=== PATIENT | male | born 1995 ===

== ENCOUNTER → 2018-07-07 | Outpatient (CLI) | payer OTHER ==
[~2018-07-07] VITALS: Ht 172.7 cm; Wt 96.2 kg
[~2018-07-07] MED LIST: DYNACIN100 MG PO; MOBIC15 MG PO; PHENTERMINE H37.5 M1 PO; TOPAMAX 25 MG T25 M1 PO
[2018-07-07 08:24] VITALS: BP 124/78
--- NOTE | 2018-07-07 08:48 | NUR ---
Pain Clinic Assessment: 1. History of Osteoarthritis: History of Rheumatoid Arthritis: 2. Height: 5 ft. 8 in. 172.7 cm. Weight: 212.0 lb. oz. 96.163 kg. Patient's BMI: 32.2 3. Vital Signs: BP: 124/78 Pulse: 70 Resp: 16 Temp: 02 Sat: 100 ECG Mon: 4. Pain Intensity: 7 5. Fall Risk: Dizziness: N Needs help standing or walking: N Fallen in the last 3 months: N Fall risk comments: 6. Patient on Blood Thinner: None 7. History of Hypertension: N 8. Opioid Therapy greater than 6 weeks: N Opiate Contract Signed: 9. Risk Assessment Tool Provided: 10. Functional Assessment Tool: 11. Recreational Drug Use: Never Drug Type: Tobacco Use: Never Smoker Tobacco Type: Amount or Packs/day: How Many Years: Alcohol Use: No Frequency: Quant:
--- NOTE | 2018-07-08 08:10 | HPC ---
[facility] [address] [place] [address] PAIN MANAGEMENT CONSULTATION Name: NICOLA WOO Room #: REG [facility]..#: [id number] Admission: 07/07/18 ������������������ Attend Phys: Jeff Munroe DO Discharge: ������������������ Date of : 97 Report #: [id number] THIS REPORT FOR: //name// CC: KOBY Ogden FAM physician/PCP Jeff Munroe DATE OF SERVICE: 07/07/2018 REFERRING PHYSICIAN: Koby Ogden CHIEF COMPLAINT: Low back pain, bilateral posterolateral thigh pain. HISTORY OF PRESENT ILLNESS: As you know, the patient is a 22-year-old male referred to our clinic with a longstanding history of low back pain and bilateral posterolateral thigh pain. The patient states this has been present since a weight lifting injury in high school. He states that as of 06/09/2018, he had an acute exacerbation of symptoms while participating in intramural sports at his college. He has shown no improvement with conservative management such as Medrol Dosepak. He sought chiropractic manipulation and physical therapy, none of which have provided good benefit. Due to lack of improvement with conservative treatment options, the patient was referred to our clinic to discuss more aggressive treatment options such as epidural injections. The patient indicates his pain is continuous, describes the pain as sharp, places current pain score at 7/10, daily average at 7/10, worst pain has been is 10/10. The patient states that any type of physical activity exacerbates symptoms, nothing appears to improve pain. He has been referred to our service after undergoing MRI imaging, which shows a broad-based disk protrusion abutting the S1 nerve roots at the L5-S1 level with mild tapering of the central canal. PAST MEDICAL HISTORY: None. PAST SURGICAL HISTORY: None. SOCIAL HISTORY: The patient denies tobacco, alcohol, IV or illicit drug use. 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 He is not receiving workmen's compensation nor is he trying to obtain disability benefits. He is not in litigation in regards to pain. He is accompanied by his mother, present in room today providing some of the history. REVIEW OF SYSTEMS: Positive for wearing corrective eyewear, low back pain, numbness and tingling sensations. All other review of systems negative per 12-point review of systems other than those listed in history of present illness. [facility] [address] [place] [address] PAIN MANAGEMENT CONSULTATION Name: NICOLA WOO Room #: REG Amena Walsh.#: [id number] Admission: 07/07/18 ������������������ Attend Phys: Jeff Munroe DO Discharge: ������������������ Date of : 97 Report #: [id number] PAIN SCORE: Pain impact score 39/70 indicating moderate interference of daily activities secondary to pain. ALLERGIES: No known drug allergies. CURRENT MEDICATIONS: Minocycline 100 mg b.i.d., topiramate 25 mg p.o. at bedtime, phentermine 37.5 mg once a day, meloxicam 15 mg once a day. IMAGING: MRI lumbar spine obtained on 06/26/2018 shows a broad-based disk protrusion abutting the S1 nerve roots at the L5-S1 level tapering the canal to 9 mm with minimal bilateral foraminal stenosis. There are some degenerative changes noted at the L5-S1 level as well. Remaining MRI is normal. PHYSICAL EXAMINATION: VITAL SIGNS: Blood pressure 124/78, pulse is 70, respiratory rate 16 and unlabored. The patient is 100% on room air. Height 5 feet 8 inches tall, weight 212 pounds, and BMI calculated 32.2. GENERAL: Well-developed, well-nourished, well-hydrated exogenously obese 22-year-old male appearing stated age, placing current pain score 7/10. HEENT: Normocephalic, atraumatic. Pupils equal, round, reactive to light. Extraocular muscles are intact. Sclerae nonicteric without injection. NEUROLOGIC: Cranial nerves 2-12 grossly intact. Speech is fluent. The patient deemed fair historian. LUNGS: Clear, no wheeze, rhonchi or rales. CARDIOVASCULAR: Regular. No appreciable gallop, no rub. ABDOMEN: Soft, mildly obese. Normoactive bowel sounds. EXTREMITIES: Show no clubbing, no cyanosis, no edema. MUSCULOSKELETAL: Lower extremity strength is symmetrical 5/5, muscle bulk and tone is equal and symmetrical in comparing left lower extremity to right. He is intact to light touch from L1 through S2 dermatomes. Seated straight leg raising negative. Supine straight leg raising is equivocal. Deep tendinous reflexes 2+/4 patella and Achilles. Ankle clonus negative. Babinski is negative. Gait is normal. Stance slightly forward flexed lumbar spine. Lumbar provocation testing including extension, rotation, lateral flexion all intensify axial back pain, no radiation of symptoms. ASSESSMENT: 1. Suspected lumbar radiculopathy. 2. Displacement of lumbar intervertebral disk with radicular symptoms. 3. Degeneration of the L5-S1 disk. 4. Minimal bilateral foraminal stenosis at L5-S1. 5. Chronic intractable pain. PLAN: 1. Based on today's physical exam and history the patient has provided, the [address] [address] PAIN MANAGEMENT CONSULTATION Name: NICOLA WOO Room #: REG MAHESH Singh#: [id number] Admission: 07/07/18 ������������������ Attend Phys: Jeff Munroe DO Discharge: ������������������ Date of : 97 Report #: [id number] description the patient uses in regards to pain as well as location of symptoms, likely source of the patient's pain is radicular in origin. The patient has changes only at the L5-S1 level. The rest of the remaining lumbar spine is normal. The patient has trialled conservative treatments with physical therapy for which he indicates pain, stabilized, but did not improve. He has tried chiropractic manipulation without success. He has been given a Medrol Dosepak of late to try to address this acute onset of worsening pain with no real efficacy. He has been referred to our clinic to discuss options for treatment for suspected lumbar radiculopathy secondary to the findings at the L5-S1 level. We discussed the following treatment options today. We discussed reinitiating physical therapy with a concerted effort at core strengthening and stretching. We discussed medication management adding neuropathic pain medications specifically either Neurontin, Lyrica, nortriptyline or amitriptyline. We discussed epidural injection under fluoroscopic guidance as a treatment option and ultimately surgical decompression. After reviewing the risks and benefits of all the proposed treatment options, the patient chose to begin with an epidural injection under fluoroscopic guidance. The patient was advised that third libertarian payer restrictions require loss or authorization be obtained before the patient can undergo the epidural injection. We will begin the authorization process immediately. Once this has been obtained, we will have the patient return to undergo the first in a series of lumbar epidural injections to address suspected lumbar radiculopathy. 2. We made no changes in the patient's medication management at this time. Recommend that he continue current medication management. 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 This would not be advisable. 3. We wish to thank the referring physician, Dr. Ogden for the referral of this patient to our clinic. We will keep you apprised of his response to treatment as we address suspected lumbar radiculopathy. Again, we wish to thank Dr. Ogden for the referral of the patient to our clinic. ��������������������������������������������� <ELECTRONICALLY SIGNED> ���������������������������������������� By: Jeff Munroe DO ��������������������������������������������� 07/08/18 0810 [id number] Jeff Munroe DO /nt
== END ==
LOC: PAIN 07:59
DX: M51.16 Intervertebral disc disorders with radiculopathy, lumbar region (principal); M48.07 Spinal stenosis, lumbosacral region; G89.4 Chronic pain syndrome; Z79.899 Other long term (current) drug therapy

== ENCOUNTER → 2018-07-10 | Outpatient (CLI) | payer OTHER ==
[~2018-07-10] VITALS: Ht 172.7 cm; Wt 98.8 kg
[2018-07-10 07:44] VITALS: BP 134/88
--- NOTE | 2018-07-10 07:44 | NUR ---
Pain Clinic Assessment: 1. History of Osteoarthritis: Not Applicable History of Rheumatoid Arthritis: Not Applicable 2. Height: ft. in. cm. Weight: lb. oz. kg. Patient's BMI: 3. Vital Signs: BP: Pulse: Resp: Temp: 02 Sat: ECG Mon: 4. Pain Intensity: 7 5. Fall Risk: Dizziness: N Needs help standing or walking: N Fallen in the last 3 months: N Fall risk comments: 6. Patient on Blood Thinner: None 7. History of Hypertension: N 8. Opioid Therapy greater than 6 weeks: N Opiate Contract Signed: 9. Risk Assessment Tool Provided: 10. Functional Assessment Tool: 11. Recreational Drug Use: Never Drug Type: Tobacco Use: Never Smoker Tobacco Type: Amount or Packs/day: How Many Years: Alcohol Use: No Frequency: Quant:
--- NOTE | 2018-07-10 07:48 | NUR ---
Pain Clinic Assessment: 1. History of Osteoarthritis: Not Applicable History of Rheumatoid Arthritis: Not Applicable 2. Height: 5 ft. 8 in. 172.7 cm. Weight: 217.8 lb. oz. 98.794 kg. Patient's BMI: 33.1 3. Vital Signs: BP: 134/88 Pulse: 77 Resp: 18 Temp: 02 Sat: 100 ECG Mon: 4. Pain Intensity: 7 5. Fall Risk: Dizziness: N Needs help standing or walking: N Fallen in the last 3 months: N Fall risk comments: 6. Patient on Blood Thinner: None 7. History of Hypertension: N 8. Opioid Therapy greater than 6 weeks: N Opiate Contract Signed: 9. Risk Assessment Tool Provided: 10. Functional Assessment Tool: 11. Recreational Drug Use: Never Drug Type: Tobacco Use: Never Smoker Tobacco Type: Amount or Packs/day: How Many Years: Alcohol Use: No Frequency: Quant:
--- NOTE | 2018-07-14 14:31 | HPC ---
[facility] [place] [address] [place] [address] PAIN MANAGEMENT CONSULTATION Name: NICOLA WOO Room #: REG [facility] M..#: [id number] Admission: 07/10/18 ������������������ Attend Phys: Jeff Munroe DO Discharge: ������������������ Date of : 97 Report #: [id number] THIS REPORT FOR: //name// CC: TIMUR DELGADO DO [facility] physician/PCP Jeff Munroe DATE OF SERVICE: 07/10/2018 CHIEF COMPLAINT: Low back pain, bilateral posterolateral thigh pain. HISTORY OF PRESENT ILLNESS: As you know, the patient is a very pleasant 22-year-old male referred to our clinic for longstanding low back pain, bilateral posterolateral thigh pain. He states pain has been present since weight lifting injury in high school. He states that as of 06/09/2018, his pain exacerbated to a point where he could no longer tolerate symptoms. He was seen in consultation on 07/07/2018, diagnosed with lumbar radiculopathy secondary to the displacement of a lumbar intervertebral disk. He had degeneration of the disk at the L5-S1 level with minimal bilateral foraminal stenosis at the L5-S1 level. He returns today in followup visit having received authorization to undergo the first in a series of lumbar epidural injections under fluoroscopic guidance. Today, he places pain score at 7/10. He states pain is constant and sharp in sensation; exacerbated with activity, improves with medications, heat, cold compresses and rest. He returns today to undergo the first in series of lumbar epidural injections under fluoroscopic guidance. ALLERGIES: No known drug allergies. CURRENT MEDICATIONS: Minocycline 100 mg b.i.d., topiramate 25 mg p.o. at bedtime, phentermine 37.5 mg once a day, meloxicam 15 mg once a day. SOCIAL HISTORY: The patient denies tobacco, alcohol, IV or illicit drug use. 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 He is unaccompanied today. IMAGING: No new imaging available. PHYSICAL EXAMINATION: VITAL SIGNS: Blood pressure 134/88, pulse 77, respiratory rate 18 and unlabored. The patient is 100% on room air. Height 5 feet 8 inches tall, weight 217.8 pounds, BMI calculated at 33.1. GENERAL: Well-developed, well-nourished, well-hydrated exogenously obese 22-year-old male appearing stated age, placing current pain score 7/10. HEENT: Normocephalic, atraumatic. Pupils equal, round, reactive to light. EXTREMITIES: Show no clubbing, no cyanosis, no edema. [address] [address] PAIN MANAGEMENT CONSULTATION Name: NICOLA WOO [id number] Admission: 07/10/18 ������������������ Attend Phys: Jeff Munroe DO Discharge: ������������������ Date of : 97 Report #: [id number] MUSCULOSKELETAL: Lower extremity strength is symmetrical 5/5, muscle bulk and tone equal and symmetrical in comparing left lower extremity to right. He is intact to light touch from L1 through S2 dermatomes. Seated straight leg raising negative. Supine straight leg raising is equivocal. Deep tendon reflexes 2+/4 patella and Achilles. ASSESSMENT: 1. Suspected lumbar radiculopathy. 2. Displacement of lumbar intervertebral disk with radicular symptoms. 3. Degeneration of the L5-S1 disk. 4. Minimal neural foraminal stenosis of the lumbar spine. 5. Chronic intractable pain. PLAN: 1. The patient has returned today in followup visit having received authorization to undergo first in the series of lumbar epidural injections under fluoroscopic guidance. The patient has been advised of the risks and the benefits of this procedure. These risks include but are not necessarily limited to bleeding, bruising, infection, worsening pain, no relief of pain and also risk of temporary or permanent muscle weakness, temporary or permanent nerve damage, possible paralysis and . The patient states he understood and wished to proceed. 2. No medication changes made at today's visit. The patient will continue current medical therapy as previously prescribed. 3. We will see the patient back in followup visit on an as needed basis for the next in the series of lumbar epidural injections. We have tentatively placed an appointment on schedule in approximately 30 days. We will keep you apprised of his response to this treatment. PROCEDURE NOTE DESCRIPTION OF PROCEDURE: L5-S1 left parasagittal epidural steroid injection under fluoroscopic guidance. This is the first procedure of the first series that the patient is undergoing. After obtaining written consent, the patient was taken back to the fluoroscopy suite, placed in a prone position with pillow under the abdomen to decrease lumbar lordosis. The skin overlying the lumbosacral area was then prepped and draped in aseptic fashion. The L5-S1 vertebral interspace was then identified by AP fluoroscopy. The skin and subcutaneous tissue overlying the target site of injection was anesthetized with 3 mL 1% lidocaine. A 20-gauge, 3.5-inch Tuohy needle was then advanced under fluoroscopic guidance towards the epidural space using a left parasagittal approach. The epidural space was identified using loss of resistance to air technique. After negative [facility] [address] [place] [address] PAIN MANAGEMENT CONSULTATION Name: NICOLA WOO [id number] Admission: 07/10/18 ������������������ Attend Phys: Jeff Munroe DO Discharge: ������������������ Date of : 97 Report #: [id number] aspiration for heme or cerebrospinal fluid, a total of 1 mL of Omnipaque was injected. A lumbar epidurogram was confirmed using both AP and lateral fluoroscopy. After negative aspiration for heme or cerebrospinal fluid, 5 mL of a solution containing 2 mL 40 mg per mL 80 mg total of triamcinolone, 3 mL of lidocaine 1% was injected in increments. Contrast spread was noted in posterior epidural space. The needle was then retracted approximately half way and needle tract flushed with 1 mL of 1% lidocaine. Needle was then removed. There were no apparent sensory or motor deficits in the lower extremity following the procedure. A sterile bandage was placed over the injection site. The heart rate, pulse, oximetry and blood pressure were continuously monitored after the procedure. There were no apparent complications. The patient tolerated the procedure well and was carefully escorted to the recovery room in stable condition. There were no apparent complications. After meeting discharge criteria, the patient was then discharged home. ��������������������������������������������� <ELECTRONICALLY SIGNED> ���������������������������������������� By: Jeff Munroe DO ��������������������������������������������� 07/14/18 1431 20 Jeff Munroe DO /nt
== END | disposition home or self-care (01) ==
LOC: PAIN 06:46
DX: M51.16 Intervertebral disc disorders with radiculopathy, lumbar region (principal); M51.17 Intervertebral disc disorders with radiculopathy, lumbosacral region; M48.061 Spinal stenosis, lumbar region without neurogenic claudication; G89.29 Other chronic pain

== ENCOUNTER → 2018-12-22 | Outpatient (CLI) | payer OTHER ==
[~2018-12-22] VITALS: Ht 172.7 cm; Wt 90.3 kg
[~2018-12-22] MED LIST changes: +IBUPROFEN 200200 M1 PO
[2018-12-22 09:58] VITALS: BP 121/80
--- NOTE | 2018-12-22 10:22 | NUR ---
Pain Clinic Assessment: 1. History of Osteoarthritis: Not Applicable History of Rheumatoid Arthritis: Not Applicable 2. Height: 5 ft. 8 in. 172.7 cm. Weight: 199.0 lb. oz. 90.266 kg. Patient's BMI: 30.3 3. Vital Signs: BP: 121/80 Pulse: 76 Resp: 14 Temp: 02 Sat: 100 ECG Mon: 4. Pain Intensity: 6-7 5. Fall Risk: Dizziness: N Needs help standing or walking: N Fallen in the last 3 months: N Fall risk comments: 6. Patient on Blood Thinner: None 7. History of Hypertension: N 8. Opioid Therapy greater than 6 weeks: N Opiate Contract Signed: 9. Risk Assessment Tool Provided: 10. Functional Assessment Tool: 11. Recreational Drug Use: Never Drug Type: Tobacco Use: Never Smoker Tobacco Type: Amount or Packs/day: How Many Years: Alcohol Use: No Frequency: Quant:
--- NOTE | 2018-12-29 09:09 | HPC ---
[facility] [place] [address] PAIN MANAGEMENT CONSULTATION Name: NICOLA WOO Room #: REG [facility] M..#: [id number] Admission: 12/22/18 Attend Phys: Jeff Munroe DO Discharge: Date of : 97 Report #: [id number] THIS REPORT FOR: //name// CC: KOBY OGDEN DO FAM physician/PCP Jeff Munroe DATE OF SERVICE: 12/22/2018 REFERRING PHYSICIAN: Koby Ogden DO CHIEF COMPLAINT: Low back pain, bilateral posterolateral thigh pain. HISTORY OF PRESENT ILLNESS: As you know, the patient is a 23-year-old male returning in followup visit reporting recurrence of low back pain, lower extremity pain with paresthesia. He is now placing pain score 6-7/10. As you are aware, the patient underwent an epidural injection on 07/10/2018 which gave 100% improvement in overall pain lasting for nearly 5 months. Unfortunately, the patient's symptoms have begun to return. He returns today in followup visit to undergo the next in the series of epidural injections to build on previous intervention. The patient denies injury or trauma that may have led to symptom reoccurrence. He is accompanied by his mother who is present in room today. IMAGING: No new imaging available. ALLERGIES: No drug allergies. CURRENT MEDICATIONS: Minocycline, topiramate, phentermine, meloxicam. SOCIAL HISTORY: The patient denies tobacco, alcohol, IV or illicit drug use. 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 He is accompanied by his mother present in room today. PHYSICAL EXAMINATION: VITAL SIGNS: Blood pressure 121/80, pulse is 76, respiratory rate 14 and unlabored. The patient is 100% on room air. Height 5 feet 8 inches tall, weight 199 pounds, BMI calculated 30.3. GENERAL: Well-developed, well-nourished, well-hydrated 23-year-old male appearing stated age, pain is rated today at 6-7/10. HEENT: Normocephalic, atraumatic. Pupils equal, round, reactive to light. EXTREMITIES: Show no clubbing, no cyanosis and no edema. MUSCULOSKELETAL: Lower extremity strength is symmetrical 5/5. Muscle bulk and tone is symmetrical in comparing left lower extremity to right. Seated straight leg raising negative. Supine straight leg raising is equivocal on the right, negative left. Deep tendon reflexes are 2+/4 patella and Achilles. Ankle [facility] [address] [place] [address] PAIN MANAGEMENT CONSULTATION Name: NICOLA WOO Room #: REG MAHESH Samantha#: [id number] Admission: 12/22/18 Attend Phys: Jeff Munroe DO Discharge: Date of : 97 Report #: [id number] clonus negative. Babinski is negative. ASSESSMENT: 1. Symptomatic lumbar radiculopathy. 2. Displacement of lumbar intervertebral disk with radiculopathy. 3. Degeneration of the L5-S1 disk. 4. Minimal neural foraminal stenosis. 5. Chronic intractable pain. PLAN: 1. The patient returns today in followup visit having noted 100% improvement in overall pain with the epidural injection provided at our visit of 07/10/2018. Unfortunately, his symptoms began to return without inciting injury or trauma. He is now reporting pain level up to 6-7/10. He returns requesting next in the series of epidural injections build on previous intervention. The patient was advised the risks and benefits of the procedure, states understood and wished to proceed. 2. No medication changes made at today's visit. We recommend the patient to continue current medical therapy as previously prescribed. 3. We will see the patient back in followup visit on an as needed basis, possible next in the series of lumbar epidural injections to address lumbar radicular symptoms secondary to the findings at the L5-S1 level. PROCEDURE NOTE DESCRIPTION OF PROCEDURE: L5-S1 paramedian epidural steroid injection under fluoroscopic guidance. This is the second procedure of the first series that the patient is undergoing. After obtaining written consent, the patient was taken back to the fluoroscopy suite, placed in a prone position with pillow under the abdomen to decrease lumbar lordosis. The skin overlying the lumbosacral area was then prepped and draped in aseptic fashion. The L5-S1 vertebral interspace was then identified by AP fluoroscopy. The skin and subcutaneous tissue overlying the target site of injection was anesthetized with 3 mL 1% lidocaine. A 20-gauge 3-1/2 inch Tuohy needle was then advanced under fluoroscopic guidance towards the epidural space using a paramedian approach. The epidural space was identified using loss of resistance to air technique. After negative aspiration for heme or cerebrospinal fluid, a total of 1 mL of Omnipaque was injected. A lumbar epidurogram was confirmed using both AP and lateral fluoroscopy. After negative aspiration for heme or cerebrospinal fluid, 4 mL of a solution containing 2 mL, 40 mg/mL, 80 mg total triamcinolone, 2 mL of lidocaine 1% injected slowly. Contrast spread was noted posterior epidural space. The needle was then retracted approximately half way and needle tract flushed with [address] [address] PAIN MANAGEMENT CONSULTATION Name: NICOLA WOO Room #: REG Amena Walsh#: [id number] Admission: 12/22/18 Attend Phys: Jeff Munroe DO Discharge: Date of : 97 Report #: [id number] mL of 1% lidocaine. Needle was then removed. There were no apparent sensory or motor deficits in the lower extremity following the procedure. A sterile bandage was placed over the injection site. The heart rate, pulse, oximetry and blood pressure were continuously monitored after the procedure. There were no apparent complications. The patient tolerated the procedure well and was carefully escorted to the recovery room in stable condition. There were no apparent complications. After meeting discharge criteria, the patient was then discharged home. <ELECTRONICALLY SIGNED> By: Jeff Munroe DO 12/29/18 0909 1222 0118 Jeff Munroe DO /nt
== END | disposition home or self-care (01) ==
LOC: PAIN 08-18 13:09
DX: M51.16 Intervertebral disc disorders with radiculopathy, lumbar region (principal); M51.27 Other intervertebral disc displacement, lumbosacral region; M48.061 Spinal stenosis, lumbar region without neurogenic claudication; G89.29 Other chronic pain; Z79.899 Other long term (current) drug therapy; Z98.890 Other specified postprocedural states